=== PATIENT | female | born 2000 | race American Indian/Alaskan Native ===

== ENCOUNTER 2021-09-16 00:50 | Outpatient (CLI) | payer OTHER, MEDICAID ==
[2021-09-16] MEDS ORDERED: LACTATED RINGERS 500 ML IV ONE (00:53)
[2021-09-16 01:08] VITALS: BP 115/56
[2021-09-16] MEDS ORDERED: LACTATED RINGERS 1,000 ML ONE (01:12)
--- NOTE | 2021-09-16 03:59 | Ultrasound Report ---
ULTRASOUND OBSTETRIC LIMITED INDICATION / CLINICAL INFORMATION: MARTIN. Clinical Gestational Age (GA) in weeks, days: 32, 3 TECHNIQUE: Transabdominal. COMPARISON: None available. FINDINGS: HEART RATE (beats per minute): 141 AMNIOTIC FLUID INDEX (cm) = 14.5 (normal = 7-24 cm) PRESENTATION: Cephalic. ADDITIONAL FINDINGS: None. IMPRESSION: 1. No significant abnormality. Signer Name: Tavo Man DO Signed: 09/16/2021 3:54 AM Workstation Name: [id number]
== END 2021-09-16 03:54 | disposition home or self-care (01) ==
LOC: TRG 00:50 → LD 00:59 → TRG 03:54
PROVIDERS: ATTEND Obstetrics & Gynecology
DX: O47.03 False labor before 37 completed weeks of gestation, third trimester (principal); Z3A.32 32 weeks gestation of pregnancy
CPT/HCPCS: 36415; 59025; 76815; 84112